=== PATIENT | male | born 1960 | race Caucasian/White ===

== ENCOUNTER → 2017-07-08 | Outpatient (CLI) | payer MEDICARE, OTHER ==
[~2017-07-08] MED LIST: ACYCLOVIR 200200 MG PO; ALEVE220 MG PO; AMBIEN 5 MG TABL5 M1 PO; AMBIEN 5 MG TABL5 MG PO; AMOXICILLIN 50500 M1 PO; APAP500 PO; ASPIRIN EC325 M1 PO; ATIVAN1 MG PO; AZITHROMYCIN; AZITHROMYCIN 2250 MG PO; Anaprox DS PO; BETAPACE80 MG PO; BIAXIN 500 MG500 M1 PO; CALCIUM 500 +1 EAC4 PO; CALCIUM 600 +1 EAC1 PO; CIPRO500 MG PO; CIPROFLOXACIN500 M1 PO; DARVOCET-N 1001 EACH PO; DOXYCYCLINE 10100 MG PO; ELEMENTAL CALC600 MG PO; FAMOTIDINE20 MG PO; FIORICET 50-321 EACH PO; FLEXERIL PO; FLOMAX0.4 MG PO; FOSAMAX 70 MG T70 M1 PO; FOSAMAX 70 MG T70 MG PO; HUMALOG100 UNIT/1 SQ; IRON325 PO; LANTUS SC; LEVSIN-SL0.125 MG SL; LEVSIN0.125 MG PO; MEGA MULTIVITA1 EACH PO; MULTIPLE VITAM1 EAC3 PO; MULTIVITAMINS PO; MYCOPHENOLIC A360 MG PO; MYFORTIC; NEBUPENT300 M1 INH; NEBUPENT300 MG IH; NORCO 5-325 TA1 EAC1 PO; NORCO 5-325 TA1 EACH PO; NORFLEX100 MG PO; NOVOLOG100 UNIT/1 SUBQ; ONDANSETRON HCL4 M2 PO; ONDANSETRON ODT4 MG PO; PENTAMIDINE 30300 MG IM; PEPCID AC20 M1 PO; PHENAZOPYRIDIN200 M2 PO; PHENERGAN 25 MG25 M1 PO; PREDNISONE 2.52.5 MG PO; PREDNISONE 5 MG5 M1 PO; PROAIR HFA8.5 GM IH; PROGRAF1 MG PO; PROPOXY-N-APAP1 EACH PO; PROPOXY-N/APAP1 TAB PO; STERAPRED5 MG PO; TAMIFLU30 MG; VIBRAMYCIN 100100 MG PO; VICODIN 5-5001 EACH PO; VITAMIN D1000 UNI1 PO; ZOFRAN4 MG PO; ZPAK PO
== END ==
LOC: M.RAD 11:51
DX: M47.896 Other spondylosis, lumbar region (principal); M53.3 Sacrococcygeal disorders, not elsewhere classified; M25.551 Pain in right hip; M54.41 Lumbago with sciatica, right side; G89.29 Other chronic pain